=== PATIENT | female | born 2000 | race Caucasian/White ===

== ENCOUNTER 2020-02-01 17:57 | Emergency (ER) | payer MEDICAID, OTHER ==
[~2020-02-01] VITALS: Ht 160 cm; Wt 68.0 kg
[2020-02-01 18:05] VITALS: BP 139/86
--- NOTE | 2020-02-01 18:20 | NUR ---
Pt c/o lower back and neck pain s/p heavy object fell onto pt from rack above her during work x yesterday---ambulates with a slow guarded gait. Abrasion to right sided lower lip from object falling on pt---no discoloration noted to back. PT DENIES ANY FEVER, CP, SOB, OR COUGH AT THIS TIME; PATIENT STATES PAIN OF 10/10 AT THIS TIME; VSS; PATIENT POSITIONED FOR COMFORT in chair B; ER MD MADE AWARE OF PT STATUS.
[2020-02-01 18:25] VITALS: BP 128/81
--- NOTE | 2020-02-01 18:28 | NUR ---
[facility] is evaluating pt.
[2020-02-01] MEDS ORDERED: KETOROLAC 60 MG/2 ML VIAL IM ONE (18:35)
== END 2020-02-01 19:38 | disposition home or self-care (01) ==
LOC: MED 17:57
DX: S30.0XXA Contusion of lower back and pelvis, initial encounter (principal); S80.211A Abrasion, right knee, initial encounter; W18.30XA Fall on same level, unspecified, initial encounter; Y93.89 Activity, other specified; Y92.89 Other specified places as the place of occurrence of the external cause; Y99.8 Other external cause status
CPT/HCPCS: 81002; 81025; 96372; 99283; J1885

== ENCOUNTER 2022-01-12 22:16 | Emergency (ER) | payer MEDICAID ==
[~2022-01-12] VITALS: Ht 162.6 cm; Wt 75.7 kg
[2022-01-12 22:20] VITALS: BP 135/80
--- NOTE | 2022-01-12 22:23 | NUR ---
TO LOBBY A/W BED AMBULATORY
--- NOTE | 2022-01-12 23:05 | NUR ---
[facility] EXAMINING PATIENT IN LOBBY
[2022-01-12] MEDS ORDERED: KETOROLAC 30 MG/ML VIAL IVP ONE (23:30)
[2022-01-12] MEDS ORDERED: ONDANSETRON 4 MG/2 ML VIAL IVP ONE (23:30)
[2022-01-12] MEDS ORDERED: NACL 0.9% 1,000 ML IV SCH (23:30)
[2022-01-12] MEDS ORDERED: PANTOPRAZOLE 40 MG INJ VIAL IVP ONE (23:30)
[2022-01-12 23:46] LABS: BASOPHILS % (AUTO) 0.2 % (0.0-2.0); EOSINOPHILS # (AUTO) 0.1 K/uL (0-0.4); EOSINOPHILS % (AUTO) 0.7 % (0.0-4.0); HEMATOCRIT 36.4 % (36-48); HEMOGLOBIN 11.9 g/dL (12.0-16.0); LYMPHOCYTES # (AUTO) 1.2 K/uL (2.5-16.5); LYMPHOCYTES % (AUTO) 10.3 % (20.5-51.1); MEAN CORPUSCULAR HEMOGLOBIN 26 pg (27-31); MEAN CORPUSCULAR HGB CONC 33 g/dL (33-37); MEAN CORPUSCULAR VOLUME 78.1 fL (80-94); MONOCYTES # (AUTO) 0.7 K/uL (0.8-1.0); MONOCYTES % (AUTO) 6.4 % (1.7-9.3); NEUTROPHILS # (AUTO) 9.2 K/uL (1.8-7.7); NEUTROPHILS % (AUTO) 82.4 % (42.2-75.2); PLATELET COUNT (AUTO) 264 K/uL (140-450); RED BLOOD CELL COUNT(AUTO) 4.66 MIL/uL (4.20-5.40); RED CELL DISTRIBUTION WIDTH 14.5 % (11.6-13.7); WHITE BLOOD COUNT (AUTO) 11.2 K/uL (4.8-10.8)
[2022-01-12 23:48] LABS: APPEARANCE,URINE CLEAR (CLEAR); BILIRUBIN,URINE NEGATIVE (NEGATIVE); BLOOD, URINE NEGATIVE (NEGATIVE); COLOR,URINE YELLOW (YELLOW); LEUKOCYTE ESTERASE ,URINE TRACE (NEGATIVE); NITRITE, URINE NEGATIVE (NEGATIVE); PH,URINE 6.5 (5.0-9.0); UGLUCOSE NEGATIVE (NEGATIVE)
[2022-01-12 23:52] LABS: RBC,URINE 0-5 /HPF (0-5)
--- NOTE | 2022-01-13 00:11 | NUR ---
PATIENT AMBULATED TO BED
[2022-01-13 00:24] LABS: ALBUMIN 3.9 g/dL (3.4-5.0); ANION GAP 13.5 (8-16); CARBON DIOXIDE 27.3 mmol/L (21-32); POTASSIUM 3.8 mmol/L (3.5-5.1); TOTAL BILIRUBIN 0.3 mg/dL (0.0-1.0)
--- NOTE | 2022-01-13 00:49 | NUR ---
PT IN BED RESTING RESP EVEN AND UNLABORED.
--- NOTE | 2022-01-13 01:25 | NUR ---
Ultrasound at bedside.
--- NOTE | 2022-01-13 01:36 | NUR ---
ULTRASOUND AT BEDSIDE
--- NOTE | 2022-01-13 01:41 | NUR ---
FAMILY AT BEDSIDE
--- NOTE | 2022-01-13 01:55 | NUR ---
PENDING ULTRASOUND RESULTS
[2022-01-13] MEDS ORDERED: MORPHINE SULFATE 4 MG/ML SYR IVP ONE (02:00)
[2022-01-13] MEDS ORDERED: CEPH-588 PO (02:02)
[2022-01-13] MEDS ORDERED: PANT40EC PO (02:02)
[2022-01-13] MEDS ORDERED: HYDR-5080 PO ×2 (02:02→02:03)
[2022-01-13] MEDS ORDERED: cefTRIAXone 1,000 MG VIAL ONE (02:15)
[2022-01-13 02:54] VITALS: BP 131/84
--- NOTE | 2022-01-13 02:54 | NUR ---
Patient discharged with v/s stable. Written and verbal after care instructions given and explained. Patient verbalized understanding. Ambulatory with steady gait. All questions addressed prior to discharge. Advised to follow up with PMD.
[2022-01-13 04:21] LABS: CREATININE 0.4 mg/dL (0.6-1.3)
== END 2022-01-13 02:54 | disposition home or self-care (01) ==
LOC: MED 22:16
DX: K85.90 Acute pancreatitis without necrosis or infection, unspecified (principal); R10.13 Epigastric pain; N39.0 Urinary tract infection, site not specified
CPT/HCPCS: 36415; 74176; 76705; 80053; 81001; 81025; 83690; 84484; 84703; 85025; 87086; 93005; 96361; 96365; 96375; 99284; C9113; J0696; J1885; J2270; J2405; J7030; Q0092